=== PATIENT | female | born 1965 | race Caucasian/White ===

== ENCOUNTER → 2023-12-20 15:36 | Outpatient (REF) | payer OTHER, SELFPAY | LOC: WDC 15:36 | PROVIDERS: ATTENDING PHYSICIAN Family Medicine | DX: Z12.31 Encounter for screening mammogram for malignant neoplasm of breast (principal) | CPT/HCPCS: 77063; 77067 ==

== ENCOUNTER 2024-05-30 06:51 | Emergency (ER) | payer OTHER, SELFPAY ==
[2024-05-30] VITALS (10 sets, daily range): BP systolic 82–141; BP diastolic 47–88
--- NOTE | 2024-05-30 07:20 | ED.GENMED ---
History of Present Illness
General
Chief Complaint: Blood Pressure Problem
Source: patient and spouse
Time Seen by Provider: 05/30/24 07:12
History of Present Illness
History of Present Illness:
59yoF with a history of hypertension and hyperlipidemia presenting with her for evaluation of low blood pressure. Patient has been following with nephrology for difficult to control blood pressures. She has been maintained on losartan 50
mg twice daily. Metoprolol succinate 25 mg daily was added about 1.5 months ago. She was then prescribed hydrochlorothiazide 25 mg daily last week. She has had 3 doses thus far. Patient reports waking up this morning and took her morning doses
of hydrochlorothiazide and losartan. Patient was feeling dizzy and nauseous at that time. She checked her blood pressure immediately after taking these medications which was 80s/50s. Patient states she could not keep her head up and came
immediately to the emergency department. She checks her blood pressure regularly and her blood pressure tends to be lower in the mornings. Her systolic is typically in the 120s in the morning and 160s at nighttime. Patient is currently feeling
improved now that she is lying flat. She denies any falls, chest pain, shortness of breath, palpitations, abdominal pain, vomiting, diarrhea, fevers. Her only other medication is a statin.
Past History
Past History
ED Past Medical History: Other (Kidney stones, hemochromatosis)
ED Past Surgical History:
Social History
Tobacco: Non-smoker
Phy Exam
Physical Exam
Physical Exam:
Laying flat on stretcher, non-toxic
General Physical Exam
General Presentation: well appearing
General age: appears stated age
General Skin: warm and dry
General Habitus: normal
General Mental: alert
ENT Exam
ENT Exam: normocephalic
Cardiovascular Exam
Cardiovascular Exam: regular rate/rhythm
Pulmonary Exam
Pulmonary Exam: lungs clear, no respiratory distress, no crackles and no wheezing
Gastrointestinal Exam
Gastrointestinal Exam: non tender, soft and non distended
[place] Coma Scale
Eye Opening: Spontaneous
Verbal Response: Oriented
Motor Response: Obeys Commands
GCS Total Score: 15
Skin Exam
Skin Exam: normal color and warm/dry
Psychiatric Exam
Psychiatric Exam: normal mood/affect
Course
Orders/Labs/Results
Orders:
Orders
05/30/24 07:19
CBC/With Diff [Complete Blood Count/With Diff] Urgent
CMP [Comprehensive Metabolic Panel] Urgent
05/30/24 07:20
Electrocardiogram (*1) Urgent
Reason for Study: Vertigo / Dizzy
EKG- Treatment ONCE
0.9% Sodium Chloride 1000 ml [Nss] 1,000 ml IV BOLUS
05/30/24 08:12
TSH Reflex To Free T4 Urgent
Troponin I Urgent
05/30/24 08:56
Add On- LAB Urgent
Tests Added?: tsh reflex t4
Abnormal Lab Results
05/30/24
07:19
RBC 3.99 L 10^6/uL
(4.20-5.40)
Hct 35.7 L %
(37.0-47.0)
MCH 31.3 H pg
(27.0-31.0)
Carbon Dioxide 21 L mmol/L
(22-30)
BUN 21 H mg/dl
(7-17)
Creatinine 1.1 H mg/dL
(0.6-1.0)
Glucose 105 H mg/dl
(70-99)
AST 49 H U/L
(14-36)
Albumin 5.2 H g/dl
(3.5-5.0)
05/30/24 07:19
05/30/24 07:19
Vital Signs
Initial and Last Documented VS:
Initial Vital Signs
Temp Pulse Resp BP Pulse Ox
98 F 79 15 85/47 95
05/30/24 07:05 05/30/24 07:05 05/30/24 07:05 05/30/24 07:05 05/30/24 07:05
Last Documented Vital Signs
Temp Pulse Resp BP Pulse Ox
98.4 F 84 15 137/80 98
05/30/24 10:26 05/30/24 10:00 05/30/24 10:00 05/30/24 10:00 05/30/24 10:26
MDM/Problems Addressed
Differential Diagnosis Includes:
59yoF here with hypotension. Recently started on HCTZ 1 week ago. Also taking metoprolol and losartan. [place] dizzy and nauseous. BP 80s/50s at home. Blood pressure 85/47 on arrival. Remainder of vitals are stable. She is currently feeling better
while she is laying flat. Exam otherwise reassuring. Differential diagnosis includes but is not limited to: medication side effect, dehydration, doubt infectious process
Initial ED plan: Check cardiac labs and TSH. IV fluid bolus.
*EKG
Interpreted by ED Provider?: Yes
EKG Intrepretation Date: 05/30/24
Heart Rate: 67
Rate: normal
Rhythm: sinus
[place]: normal axis
Interval: normal interval
QRS Pattern: normal QRS
Ischemia: no ischemia
*Critical Care Note
Total Time (30-74mins, 75-104mins- exclusive of procedures): Not Applicable
Update Note
Update Note:
Labs overall unremarkable including normal blood counts, TSH, electrolytes, glucose. EKG shows NSR without ischemic changes and troponin WNL. Patient monitored in the ED >3 hours. No episodes of hypotension after fluid bolus. Patient asymptomatic on
reassessment and states she feels bored and would like to be discharged. BP 137/80. No indication for admission. She was advised to hold her afternoon BP medication dose. She was instructed to call her PCP and outside industrial sales representative for further instructions
regarding her antihypertensive medications. ED return precautions discussed. She was discharged in stable condition.
ED Attending Note
-
Portions of this chart may have been created with voice recognition software.� Occasional wrong word or��sound alike� substitutions may have occurred due to the inherent limitations of voice recognition software.
Discharge Plan
Departure
Patient Disposition: Home (Routine Discharge)
Date of Disposition: 05/30/24
Time of Disposition: 10:10
Patient with high blood pressure during this ER visit?: No
Discharge Problem:
Acute hypotension
Instructions: Dealing with Low Blood Pressure from the Drugs You Take
Prescriptions:
No Action
multivitamin [Daily Multi-Vitamin] 1 EACH tablet
1 ea PO DAILY
quetiapine [Seroquel] 50 MG tablet
150 mg PO HS
escitalopram oxalate 5 MG tablet
5 mg PO HS
Losartan
PO HS
Referrals:
Sandy Hubbard PA-C [Family Provider] -
Activity Restrictions/Additional Instructions:
Do not take your metoprolol dose this afternoon.
Please call your outside industrial sales representative and family doctor today for further instructions regarding your blood pressure medications.
Return to the ER with any new or worsening symptoms.
Interventions
Interventions:
*Risk Screen - Suicide Last Done: 05/30/24 07:05
*General Assessment Last Done: 05/30/24 07:05
*Neglect/Abuse Screening Last Done: 05/30/24 07:05
*ED COVID-19 Vaccine History Last Done: 05/30/24 07:05
*Nursing Disposition Last Done: 05/30/24 10:26
ED- Cardiac Assessment Last Done: 05/30/24 07:05
ED- Neurological Assessment Last Done: 05/30/24 07:05
ED- Pulmonary Assessment Last Done: 05/30/24 07:05
Discharge Date and Time
Discharge Date/Time: 05/30/24 10:28
Print Language: ITALIAN
[2024-05-30] MEDS: NSS 1000 IV (07:23)
[2024-05-30 07:36] LABS: % Basophils 0.8 % (0-2); % Eosinophils 2.4 % (0-6); % Immature Granulocytes 0.4 % (0-0.5); % Lymphocytes 38.6 % (20.5-51.1); % Monocytes 5.4 % (1.7-9.3); % Neutrophils 52.4 % (42.2-75.2); Absolute Eosinophils 0.1 10^3/uL (0-0.7); Absolute Lymphocytes 1.9 10^3/uL (1.2-3.4); Absolute Monocytes 0.3 10^3/uL (0.1-0.6); Absolute Neutrophils 2.6 10^3/uL (1.4-6.5); Hematocrit 35.7 % (37.0-47.0); Hemoglobin 12.5 g/dL (12.0-16.0); Mean Corpuscular Hgb 31.3 pg (27.0-31.0); Mean Corpuscular Volume 89.5 fL (81.0-99.0); Mean Platelet Volume 9.4 fL (7.4-10.4); Nucleated Red Blood Cells % 0 %; Platelet Count 295 10^3/uL (130-400); Red Blood Cell Count 3.99 10^6/uL (4.20-5.40); Red Cell Dist. Width 13.4 % (11.5-14.5)
[2024-05-30 07:57] LABS: ALT (SGPT) 24 U/L (0-35); AST (SGOT) 49 U/L (14-36); Albumin 5.2 g/dl (3.5-5.0); Alkaline Phosphatase 78 U/L (38-126); Blood Urea Nitrogen 21 mg/dl (7-17); Calcium 10.2 mg/dl (8.4-10.2); Carbon Dioxide 21 mmol/L (22-30); Chloride 98 mmol/L (98-107); Glucose 105 mg/dl (70-99); Potassium 4.4 mmol/L (3.5-5.1); Sodium 137 mmol/L (135-145); Total Bilirubin 0.4 mg/dl (0.2-1.3); Total Protein 7.4 g/dl (6.3-8.2); eGFR 58.24
[2024-05-30 08:43] LABS: Troponin I < 0.012 ng/ml
== END 2024-05-30 10:28 | disposition home or self-care (01) ==
LOC: EMR 06:51
PROVIDERS: Physician Assistant; EMERGENCY PHYSICIAN Emergency Medicine; FAMILY PHYSICIAN Physician Assistant
DX: I95.9 Hypotension, unspecified (principal); E78.5 Hyperlipidemia, unspecified; I10 Essential (primary) hypertension; Z79.899 Other long term (current) drug therapy; Z87.442 Personal history of urinary calculi
CPT/HCPCS: 99283; 96360; 80053; 84443; 84484; 85025; 93005

== ENCOUNTER → 2024-12-20 15:39 | Outpatient (REF) | payer OTHER, SELFPAY | LOC: WDC 15:39 | PROVIDERS: ATTENDING PHYSICIAN Obstetrics & Gynecology Gynecology; FAMILY PHYSICIAN Family Medicine | DX: Z12.31 Encounter for screening mammogram for malignant neoplasm of breast (principal) | CPT/HCPCS: 77063; 77067 ==

== ENCOUNTER → 2025-01-03 10:20 | Outpatient (REF) | payer OTHER, SELFPAY | LOC: WDC 10:20 | PROVIDERS: ATTENDING PHYSICIAN Obstetrics & Gynecology Gynecology; FAMILY PHYSICIAN Family Medicine | DX: R92.8 Other abnormal and inconclusive findings on diagnostic imaging of breast (principal) | CPT/HCPCS: 76642 ==